=== PATIENT | female | born 1980 | race Two or more races ===

== ENCOUNTER 2019-08-24 05:52 | Day surgery (SDC) | payer OTHER ==
[2019-08-24] MEDS ORDERED: MIDAZOLAM 2 MG/2 ML INJ ONE ×2 (06:41→07:23)
[2019-08-24] MEDS ORDERED: FENTANYL CITRATE INJ/PF 100 MCG/2 ML AMPUL ONE (06:41)
[2019-08-24] MEDS ORDERED: ONDANSETRON HCL INJ/PF 4 MG/2 ML SDV ONE (06:42)
[2019-08-24] MEDS ORDERED: DEXAMETHASONE SOD PHOSPHATE INJ 4 MG/1 ML VIAL ONE (06:42)
[2019-08-24] MEDS ORDERED: PROPOFOL INJ 200 MG/20 ML VIAL IV ONE (06:42)
[2019-08-24 07:27] LABS: APPEARANCE,URINE CLOUDY; BILIRUBIN,URINE NEGATIVE (NEGATIVE); COLOR,URINE YELLOW; GLUCOSE, URINE NEGATIVE (NEGATIVE); KETONES,URINE NEGATIVE (NEGATIVE); LEUKOCYTE ESTERASE,URINE LARGE (NEGATIVE); NITRITE,URINE NEGATIVE (NEGATIVE); PROTEIN,URINE 30 mg/dL (NEGATIVE); URINE SPECIFIC GRAVITY 1.023
[2019-08-24] MEDS ORDERED: PROMETHAZINE HCL INJ 25 MG/1 ML VIAL IV PRN (07:46)
[2019-08-24] MEDS ORDERED: DIPHENHYDRAMINE HCL 50 MG/ML VIAL IV PRN (07:46)
[2019-08-24] MEDS ORDERED: FENTANYL CITRATE INJ/PF 100 MCG/2 ML AMPUL IV PRN ×3 (07:46)
[2019-08-24] MEDS ORDERED: MEPERIDINE HCL/PF INJ 25 MG/1 ML DISP.SYRIN IV PRN (07:46)
[2019-08-24] MEDS ORDERED: KETOROLAC TROMETHAMINE INJ/PF 30 MG/1 ML SDV ONE (08:32)
[2019-08-24] MEDS ORDERED: ACETAMINOPHEN 1,000 MG/100 ML RTUPB IV ONE (08:32)
--- NOTE | 2019-08-24 08:33 | Operative Report ---
Operative Report DATE OF SURGERY: 08/24/19 PREOPERATIVE DIAGNOSIS: Missed POSTOPERATIVE DIAGNOSIS: Same as above OPERATION: Suction dilatiom and curettage SURGEON: BONNIE HARP ANESTHESIA: GA TISSUE REMOVED OR ALTERED: Products of conception COMPLICATIONS: None ESTIMATED BLOOD LOSS: 50 INTRAOPERATIVE FINDINGS: Uterus sounded to 12 cm and palpated to 10 weeks. Products of conception noted in suction curette PROCEDURE: IV fluids: Crystalloid IV fluids per anesthesia record Disposition: To recovery room in stable condition Description of the procedure: The patient was taken to the operating room where monitored anesthesia was administered and found to be adequate. She was then placed in the dorsol lithotomy position and prepped and draped in the usual sterile fashion. A timeout was taken. A weighted speculum was placed in the vagina and a Mcpherson retractor was used to bring the cervix into good view. A single-tooth tenaculum was used to grasp the anterior lip of the cervix and the cervix was serially dilated. The uterus sounded to approximately 12 cm and the cervix was serially dilated to approximately 10 mm. The #10 suction curette was inserted and using suction, the products of conception were removed. The suction curette was removed and a regular curette was advanced to the uterine fundus. Gentle curettage was done in a circumferential manner until a gritty texture was noted. The curette was removed and suction curette re-inserted to the fundus. Suction curettage done once more. The tissue obtained will be sent to the lab as products of conception. Part of sample sent fresh for Chromosomes. The procedure was then terminated all instrument to remove the patient's vagina. The patient tolerated the procedure well all instrument sponge and needle counts were correct x2 for the procedure she will proceed to recovery room in stable condition
[2019-08-24] MEDS ORDERED: OXYCODONE-ACETAMINOPHEN 5-325 MG TABLET ONE (08:59)
[2019-08-24] MEDS ORDERED: IBUPROFEN 800 MG TABLET PO PRN (09:04)
--- NOTE | 2019-08-24 09:16 | Discharge Summary ---
Discharge Summary (SDC) - Discharge Final Diagnosis: Missed Date of Surgery: 08/24/19 Discharge Date: 08/24/19 Condition: Stable Forms: ASU Anesthesia D/C Instruction, Discharge POC-Surgical Service Treatment or Instructions: Seek care immediately if: * You have heavy vaginal bleeding that soaks 1 pad in 1 hour for 2 hours in a row. * You have a fever higher than 100.4F (38C). * You have abdominal cramps for more than 2 days. * Your pain does not get better, even after treatment. Contact your healthcare provider if: * You have foul-smelling vaginal discharge. * You feel depressed or anxious. * You feel very tired and weak. * You have questions or concerns about your condition or care. Self-care: * Use sanitary pads if needed. You may have light bleeding for up to 2 weeks. Do not use tampons. Use sanitary pads instead. This will help prevent a vaginal infection. * Rest as needed. Slowly start to do more each day. Return to your daily activities as directed. * PELVIC REST: Do not insert anything into the vagina until cleared by MD. Prescriptions: Metronidazole [Flagyl 500 mg Tablet] 500 mg PO Q12 5 Days #10 tablet Hydrocodone/Acetaminophen [[place] 5-325 mg Tablet] 1 tab PO Q12 PRN 4 Days #8 tablet PRN Reason: For Pain Scale 4-5 Ketorolac Tromethamine [Toradol 10 mg Tablet] 10 mg PO Q8HP PRN 10 Days #30 tablet PRN Reason: Pain Scale Of 3 Referrals: BONNIE HARP MD [ACTIVE PROVISIONAL STAFF] - 09/01/19 9:30 am LUIS BROWN MD [Primary Care Provider] - Discharge Diet: As Tolerated Respiratory Treatments at Home: Deep Breathing/Coughing Discharge Activity: Activity As Tolerated, Balance Activity w/Rest, No Lifting Over 10 Pounds, No Lifting/Push/Pulling, Pelvic Rest, No tub bath Home Care Assistance: None Needed Report the Following to Your Physician Immediately: Shortness of Breath, Nausea, Vomiting, Increase in Pain, Fever over 101 Degrees, Unusual Bleeding, Redness, Swelling, Warmth, Increased Soreness, Drainage-Yellow, Drainage-[place], Drainage- Green, Drainage-Foul Smelling, Increased Vaginal Bleed, Large Clots, Numbness, Tingling Sensation, Visual Disturbance, Wheezing, Seizure, IV Site Infection Signs, Urinary Infection Signs
[2019-08-24] MEDS ORDERED: OXYCODONE-ACETAMINOPHEN 5-325 MG TABLET PO PRN ×2 (09:30)
[2019-08-24] MEDS ORDERED: RINGERS SOLUTION,LACTATED 1,000 ML IV PRN (09:30)
[2019-08-24 10:16] VITALS: BP 101/62
== END 2019-08-24 10:05 | disposition home or self-care (01) ==
LOC: OROUT 05:52
PROVIDERS: ATTEND Obstetrics & Gynecology
DX: O02.1 Missed abortion (principal); Z32.01 Encounter for pregnancy test, result positive; J45.909 Unspecified asthma, uncomplicated; F17.210 Nicotine dependence, cigarettes, uncomplicated
CPT/HCPCS: 86900; 86901; 36415; 86850; 81001; 88305 ×2; 01965; 59820; J2250; J1100; J3010; J1885; J2405; J2704; J0131; 1965